=== PATIENT | female | born 1965 | race African-American/Black ===

== ENCOUNTER 2018-10-07 18:08 | Emergency (ER) | payer SELFPAY ==
[~2018-10-07] VITALS: Ht 167.6 cm; Wt 100.0 kg
[~2018-10-07 18:08] MED LIST: ATENOLOL25 MG PO; BENADRYL25 M1 OR; LISINOPRIL10 MG PO; NORVASC PO; ZOFRAN ODT8 MG PO
[2018-10-07] MEDS ORDERED: ATENOLOL50 MG PO (18:22)
[2018-10-07 18:29] LABS: HEMATOCRIT 40.3 % (37.0-47.0); IMMATURE GRANULOCYTES 0.2 % (0.0-5.0); MEAN CELL VOLUME 93.7 fL CALC (80.0-100.0); MEAN CORPUSCULAR HGB 30.2 pG CALC (26.0-32.0); MEAN CORPUSCULAR HGB CONC 32.3 g/L CALC (32.0-36.0); NEUT# 4.11 thou/uL (2.00-7.15); RED BLOOD COUNT 4.3 mill/uL (4.20-5.60); RED CELL DISTRI WIDTH 14.3 % (11.5-15.5)
[2018-10-07 18:45] LABS: ALBUMIN 4.6 g/dL (3.2-5.0); ALKALINE PHOSPHATASE 130 u/l (38-126); AMYLASE 133 u/l (30-110); ANION GAP 10 (6-22 (CALC)); BILIRUBIN, TOTAL 0.6 mg/dL (0.0-1.4); BUN 9 mg/dL (7-17); BUN/CREATININE RATIO 12 (12-20 (CALC)); CARBON DIOXIDE 30 mmol/l (22-30); CHLORIDE 107 mmol/l (95-108); CREATININE 0.7 mg/dL (0.5-1.0); GFR > 60 ML/MIN (>=60 (CALC)); GFR FOR AFR.AMER. > 60 ML/MIN (>=60 (CALC)); LIPASE 41 u/l (23-300); POTASSIUM 3.6 mmol/l (3.5-5.1); SGOT/AST 23 u/l (14-36); SODIUM 144 mmol/l (137-146); TOTAL PROTEIN 9.3 g/dL (6.3-8.2)
[2018-10-07 21:27] LABS: URINE BILIRUBIN - DIPSTICK NEGATIVE (NEGATIVE); URINE BLOOD DIPSTICK NEGATIVE (NEGATIVE); URINE COLOR YELLOW; URINE GLUCOSE - DIPSTICK NEGATIVE (NEGATIVE); URINE KETONE NEGATIVE (NEGATIVE); URINE LEUK ESTERASE NEGATIVE (NEGATIVE); URINE NITRITE - DIPSTICK NEGATIVE (Negative); URINE PH 6.5 (4.5-8.0); URINE PROTEIN - DIPSTICK TRACE mg/dL (NEG-TRACE); URINE SPECIFIC GRAVITY >=1.030; URINE UROBILINOGEN - DIPSTICK 0.2 E.U./dL (0.2)
[2018-10-07] MEDS ORDERED: PHENERGAN25 MG/TAB PO (21:37)
[2018-10-07 21:42] VITALS: BP 188/88
== END 2018-10-07 21:52 | disposition home or self-care (01) | DRG 392 ==
LOC: ED 18:08
PROVIDERS: Family Medicine
DX: K52.9 Noninfective gastroenteritis and colitis, unspecified (principal); I10 Essential (primary) hypertension

== ENCOUNTER 2019-10-06 13:27 | Inpatient (IN) | payer SELFPAY ==
[~2019-10-06] VITALS: Ht 170.2 cm; Wt 97.2 kg
[~2019-10-06 13:27] MED LIST changes: +ATENOLOL50 MG PO; +PHENERGAN25 MG/TAB PO
[2019-10-06 15:30] LABS: HEMATOCRIT 38.4 % (37.0-47.0); HEMOGLOBIN 12.6 g/dl (12.0-16.0); IMMATURE GRANULOCYTES 0.2 % (0.0-5.0); MEAN CORPUSCULAR HGB 31.5 pG CALC (26.0-32.0); MEAN CORPUSCULAR HGB CONC 32.8 g/dL CAL (32.0-36.0); NEUT# 3.65 thou/uL (2.00-7.15); RED CELL DISTRI WIDTH 13.4 % (11.5-15.5)
[2019-10-06 15:41] LABS: ALBUMIN 4.5 g/dL (3.2-5.0); ALKALINE PHOSPHATASE 127 u/l (38-126); BUN 10 mg/dL (7-17); BUN/CREATININE RATIO 10 (12-20 (CALC)); CARBON DIOXIDE 31 mmol/l (22-30); CHLORIDE 96 mmol/l (95-108); GFR 58 ML/MIN (>=60 (CALC)); GFR FOR AFR.AMER. > 60 ML/MIN (>=60 (CALC)); POTASSIUM 2.9 mmol/l (3.5-5.1); TOTAL PROTEIN 9.1 g/dL (6.3-8.2)
[2019-10-06 15:54] LABS: ANION GAP 12 (6-22 (CALC)); BILIRUBIN, TOTAL 0.9 mg/dL (0.0-1.4); SGOT/AST 45 u/l (14-36); SODIUM 136 mmol/l (137-146)
[2019-10-06 16:26] LABS: C-REACTIVE PROTEIN 8.2 mg/dL (0-0.9); MAGNESIUM 2.2 mg/dL (1.6-2.3)
[2019-10-06 18:07] VITALS: BP 109/76
[2019-10-07] VITALS (7 sets, daily range): BP systolic 87–117; BP diastolic 49–75
[2019-10-07 05:34] LABS: HEMATOCRIT 34.8 % (37.0-47.0); HEMOGLOBIN 11.3 g/dl (12.0-16.0); IMMATURE GRANULOCYTES 0.2 % (0.0-5.0); MEAN CELL VOLUME 96.1 fL CALC (80.0-100.0); MEAN CORPUSCULAR HGB 31.2 pG CALC (26.0-32.0); MEAN CORPUSCULAR HGB CONC 32.5 g/dL CAL (32.0-36.0); NEUT# 3.29 thou/uL (2.00-7.15); RED BLOOD COUNT 3.62 mill/uL (4.20-5.60); RED CELL DISTRI WIDTH 13.5 % (11.5-15.5)
[2019-10-07 05:58] LABS: ALBUMIN 3.8 g/dL (3.2-5.0); ALKALINE PHOSPHATASE 117 u/l (38-126); ANION GAP 12 (6-22 (CALC)); BILIRUBIN, TOTAL 0.9 mg/dL (0.0-1.4); BUN 11 mg/dL (7-17); BUN/CREATININE RATIO 13 (12-20 (CALC)); CARBON DIOXIDE 26 mmol/l (22-30); CHLORIDE 101 mmol/l (95-108); CREATININE 0.9 mg/dL (0.5-1.0); GFR > 60 ML/MIN (>=60 (CALC)); GFR FOR AFR.AMER. > 60 ML/MIN (>=60 (CALC)); SGOT/AST 35 u/l (14-36); SODIUM 135 mmol/l (137-146); TOTAL PROTEIN 7.4 g/dL (6.3-8.2)
[2019-10-07 06:01] LABS: POTASSIUM 3.7 mmol/l (3.5-5.1)
[2019-10-08 00:35] VITALS: BP 110/65
[2019-10-08 04:34] VITALS: BP 107/70
[2019-10-08 07:44] VITALS: BP 122/70
[2019-10-08 11:00] VITALS: BP 101/58
[2019-10-08 15:00] VITALS: BP 92/61
[2019-10-08 19:25] VITALS: BP 98/58
[2019-10-09 00:22] VITALS: BP 96/59
[2019-10-09 04:30] VITALS: BP 109/66
[2019-10-09 05:02] LABS: HEMATOCRIT 35.9 % (37.0-47.0); HEMOGLOBIN 11.6 g/dl (12.0-16.0); IMMATURE GRANULOCYTES 0.4 % (0.0-5.0); MEAN CELL VOLUME 96.2 fL CALC (80.0-100.0); MEAN CORPUSCULAR HGB 31.1 pG CALC (26.0-32.0); MEAN CORPUSCULAR HGB CONC 32.3 g/dL CAL (32.0-36.0); NEUT# 6.2 thou/uL (2.00-7.15); RED BLOOD COUNT 3.73 mill/uL (4.20-5.60); RED CELL DISTRI WIDTH 13.5 % (11.5-15.5)
[2019-10-09 05:26] LABS: ALBUMIN 3.4 g/dL (3.2-5.0); ALKALINE PHOSPHATASE 138 u/l (38-126); ANION GAP 11 (6-22 (CALC)); BILIRUBIN, TOTAL 0.8 mg/dL (0.0-1.4); BUN 15 mg/dL (7-17); BUN/CREATININE RATIO 14 (12-20 (CALC)); CARBON DIOXIDE 27 mmol/l (22-30); CHLORIDE 99 mmol/l (95-108); CREATININE 1.1 mg/dL (0.5-1.0); GFR 52 ML/MIN (>=60 (CALC)); GFR FOR AFR.AMER. > 60 ML/MIN (>=60 (CALC)); POTASSIUM 3.7 mmol/l (3.5-5.1); SGOT/AST 45 u/l (14-36); SODIUM 134 mmol/l (137-146); TOTAL PROTEIN 7.1 g/dL (6.3-8.2)
[2019-10-09 05:45] LABS: C-REACTIVE PROTEIN 17.2 mg/dL (0-0.9)
[2019-10-09 08:23] VITALS: BP 114/58
[2019-10-09 10:30] VITALS: BP 110/68
[2019-10-09 14:36] LABS: URINE BILIRUBIN - DIPSTICK SMALL (NEGATIVE); URINE BLOOD DIPSTICK MODERATE (NEGATIVE); URINE COLOR DK. YELLOW; URINE GLUCOSE - DIPSTICK NEGATIVE (NEGATIVE); URINE KETONE NEGATIVE (NEGATIVE); URINE LEUK ESTERASE NEGATIVE (NEGATIVE); URINE NITRITE - DIPSTICK NEGATIVE (Negative); URINE PROTEIN - DIPSTICK >=300 mg/dL (NEG-TRACE); URINE SPECIFIC GRAVITY 1.025; URINE UROBILINOGEN - DIPSTICK 0.2 E.U./dL (0.2)
[2019-10-09 14:53] LABS: URINE SQUAMOUS EPITHELIAL CELL FEW EPI/hpf (0-FEW)
[2019-10-09 15:00] VITALS: BP 108/69; BP 110/70
[2019-10-09 19:34] VITALS: BP 93/57
[2019-10-10] VITALS (7 sets, daily range): BP systolic 84–101; BP diastolic 50–63
[2019-10-11 02:40] VITALS: BP 100/62
[2019-10-11 05:15] LABS: HEMATOCRIT 34.1 % (37.0-47.0); IMMATURE GRANULOCYTES 0.9 % (0.0-5.0); MEAN CELL VOLUME 97.4 fL CALC (80.0-100.0); MEAN CORPUSCULAR HGB 31.4 pG CALC (26.0-32.0); MEAN CORPUSCULAR HGB CONC 32.3 g/dL CAL (32.0-36.0); NEUT# 9.53 thou/uL (2.00-7.15); RED BLOOD COUNT 3.5 mill/uL (4.20-5.60); RED CELL DISTRI WIDTH 13.5 % (11.5-15.5)
[2019-10-11 05:26] LABS: ALBUMIN 2.9 g/dL (3.2-5.0); BILIRUBIN, TOTAL 0.6 mg/dL (0.0-1.4); CREATININE 1.3 mg/dL (0.5-1.0); POTASSIUM 4.1 mmol/l (3.5-5.1); TOTAL PROTEIN 6.5 g/dL (6.3-8.2)
[2019-10-11 05:58] LABS: C-REACTIVE PROTEIN 13.7 mg/dL (0-0.9)
[2019-10-11 08:06] VITALS: BP 100/51
[2019-10-11 11:22] VITALS: BP 103/62
[2019-10-11 15:54] VITALS: BP 104/66
[2019-10-11 19:30] VITALS: BP 117/73
[2019-10-12 00:10] VITALS: BP 109/65
[2019-10-12 04:00] VITALS: BP 109/72
[2019-10-12 05:53] LABS: HEMATOCRIT 36.9 % (37.0-47.0); HEMOGLOBIN 11.6 g/dl (12.0-16.0); MEAN CELL VOLUME 99.2 fL CALC (80.0-100.0); MEAN CORPUSCULAR HGB 31.2 pG CALC (26.0-32.0); MEAN CORPUSCULAR HGB CONC 31.4 g/dL CAL (32.0-36.0); RED BLOOD COUNT 3.72 mill/uL (4.20-5.60); RED CELL DISTRI WIDTH 13.5 % (11.5-15.5)
[2019-10-12 06:22] LABS: ALBUMIN 2.9 g/dL (3.2-5.0); BILIRUBIN, TOTAL 0.5 mg/dL (0.0-1.4); CREATININE 1.2 mg/dL (0.5-1.0); POTASSIUM 4.2 mmol/l (3.5-5.1); TOTAL PROTEIN 6.4 g/dL (6.3-8.2)
[2019-10-12 08:02] VITALS: BP 96/58
[2019-10-12 11:32] VITALS: BP 123/66
[2019-10-12 15:30] VITALS: BP 109/65
[2019-10-12 18:50] VITALS: BP 116/67
[2019-10-13] VITALS: BP 119/72
[2019-10-13 04:00] VITALS: BP 143/75
[2019-10-13 05:53] LABS: HEMATOCRIT 37.2 % (37.0-47.0); HEMOGLOBIN 11.6 g/dl (12.0-16.0); IMMATURE GRANULOCYTES 0.9 % (0.0-5.0); MEAN CELL VOLUME 97.4 fL CALC (80.0-100.0); MEAN CORPUSCULAR HGB 30.4 pG CALC (26.0-32.0); MEAN CORPUSCULAR HGB CONC 31.2 g/dL CAL (32.0-36.0); NEUT# 4.02 thou/uL (2.00-7.15); RED BLOOD COUNT 3.82 mill/uL (4.20-5.60); RED CELL DISTRI WIDTH 13.3 % (11.5-15.5)
[2019-10-13 06:04] LABS: ALBUMIN 2.9 g/dL (3.2-5.0); ALKALINE PHOSPHATASE 118 u/l (38-126); ANION GAP 10 (6-22 (CALC)); BILIRUBIN, TOTAL 0.6 mg/dL (0.0-1.4); BUN 20 mg/dL (7-17); BUN/CREATININE RATIO 19 (12-20 (CALC)); C-REACTIVE PROTEIN 3.7 mg/dL (0-0.9); CARBON DIOXIDE 26 mmol/l (22-30); CHLORIDE 103 mmol/l (95-108); CREATININE 1.1 mg/dL (0.5-1.0); GFR 52 ML/MIN (>=60 (CALC)); GFR FOR AFR.AMER. > 60 ML/MIN (>=60 (CALC)); SGOT/AST 30 u/l (14-36); SODIUM 135 mmol/l (137-146); TOTAL PROTEIN 6.4 g/dL (6.3-8.2)
[2019-10-13 08:18] VITALS: BP 107/65
[2019-10-13] MEDS ORDERED: DEXAMETHASON6 MG PO (11:27)
[2019-10-13 11:32] VITALS: BP 135/77
[2019-10-13 16:50] VITALS: BP 145/74
[2019-10-13 19:25] VITALS: BP 130/78
[2019-10-14 04:06] VITALS: BP 137/83
[2019-10-14 07:45] VITALS: BP 118/75
[2019-10-14 11:11] VITALS: BP 122/77
== END 2019-10-14 14:50 | disposition home or self-care (01) | DRG 177 ==
LOC: ED 13:27 → ED-I 16:00 → ED 16:07 → ED-I 16:08 → MS2 16:08
PROVIDERS: Family Medicine; Nurse Practitioner Family; ADMIT Internal Medicine; ATTEND Internal Medicine
DX: U07.1 COVID-19 (principal); J12.89 Other viral pneumonia; J96.01 Acute respiratory failure with hypoxia; I10 Essential (primary) hypertension; E87.6 Hypokalemia
CPT/HCPCS: J1650; J3475

== ENCOUNTER 2019-12-17 00:48 | Emergency (ER) | payer SELFPAY ==
[~2019-12-17] VITALS: Ht 170.2 cm; Wt 90.0 kg
[~2019-12-17 00:48] MED LIST changes: +DEXAMETHASON6 MG PO
[2019-12-17] MEDS ORDERED: VASOTEC2.5 MG PO (01:08)
[2019-12-17 01:42] LABS: HEMOGLOBIN 10.7 g/dl (12.0-16.0); MEAN CELL VOLUME 97.3 fL CALC (80.0-100.0); MEAN CORPUSCULAR HGB 31.6 pG CALC (26.0-32.0); MEAN CORPUSCULAR HGB CONC 32.4 g/dL CAL (32.0-36.0); NEUT# 1.65 thou/uL (2.00-7.15); RED BLOOD COUNT 3.39 mill/uL (4.20-5.60); RED CELL DISTRI WIDTH 17.7 % (11.5-15.5)
[2019-12-17 02:03] LABS: ALBUMIN 4.2 g/dL (3.2-5.0); ALKALINE PHOSPHATASE 104 u/l (38-126); ANION GAP 15 (6-22 (CALC)); BILIRUBIN, TOTAL 0.7 mg/dL (0.0-1.4); BUN 6 mg/dL (7-17); BUN/CREATININE RATIO 7 (12-20 (CALC)); CARBON DIOXIDE 22 mmol/l (22-30); CHLORIDE 108 mmol/l (95-108); CPK 98 u/l (30-165); CREATININE 0.9 mg/dL (0.5-1.0); GFR > 60 ML/MIN (>=60 (CALC)); GFR FOR AFR.AMER. > 60 ML/MIN (>=60 (CALC)); MAGNESIUM 2.1 mg/dL (1.6-2.3); POTASSIUM 3.3 mmol/l (3.5-5.1); SGOT/AST 31 u/l (14-36); SODIUM 141 mmol/l (137-146); TOTAL PROTEIN 8.1 g/dL (6.3-8.2)
[2019-12-17] MEDS ORDERED: TORADOL PO (02:29)
[2019-12-17 02:46] VITALS: BP 137/76
== END 2019-12-17 02:46 | disposition home or self-care (01) | DRG 556 ==
LOC: ED 00:48
PROVIDERS: Family Medicine
DX: M79.18 Myalgia, other site (principal); I10 Essential (primary) hypertension; E66.9 Obesity, unspecified

== ENCOUNTER 2020-02-12 20:08 | Emergency (ER) | payer SELFPAY ==
[~2020-02-12] VITALS: Ht 172.7 cm; Wt 95.4 kg
[~2020-02-12 20:08] MED LIST changes: +TORADOL PO; +VASOTEC2.5 MG PO
[2020-02-12 20:16] VITALS: BP 104/64
== END 2020-02-12 21:25 | disposition home or self-care (01) | DRG 563 ==
LOC: ED 20:08
DX: S93.402A Sprain of unspecified ligament of left ankle, initial encounter (principal); I10 Essential (primary) hypertension; X50.0XXA Overexertion from strenuous movement or load, initial encounter; Y92.22 Religious institution as the place of occurrence of the external cause

== ENCOUNTER 2021-03-16 14:02 | Emergency (ER) | payer SELFPAY ==
[~2021-03-16] VITALS: Ht 172.7 cm; Wt 115.0 kg
[2021-03-16 16:35] LABS: IMMATURE GRANULOCYTES 0.1 % (0.0-5.0); MEAN CELL VOLUME 96.4 fL CALC (80.0-100.0); MEAN CORPUSCULAR HGB 31.1 pG CALC (26.0-32.0); MEAN CORPUSCULAR HGB CONC 32.3 g/dL CAL (32.0-36.0); NEUT# 3.57 thou/uL (2.00-7.15); RED BLOOD COUNT 4.18 mill/uL (4.20-5.60); RED CELL DISTRI WIDTH 13.8 % (11.5-15.5)
[2021-03-16 16:36] LABS: HEMATOCRIT 40.3 % (37.0-47.0)
[2021-03-16 16:58] LABS: ALBUMIN 4.2 g/dL (3.2-5.0); ALKALINE PHOSPHATASE 130 u/l (38-126); ANION GAP 13 (6-22 (CALC)); BILIRUBIN, TOTAL 0.9 mg/dL (0.0-1.4); BUN 10 mg/dL (7-17); BUN/CREATININE RATIO 13 (12-20 (CALC)); CARBON DIOXIDE 28 mmol/l (22-30); CHLORIDE 105 mmol/l (95-108); CREATININE 0.8 mg/dL (0.5-1.0); GFR > 60 ML/MIN (>=60 (CALC)); GFR FOR AFR.AMER. > 60 ML/MIN (>=60 (CALC)); POTASSIUM 3.9 mmol/l (3.5-5.1); SGOT/AST 28 u/l (14-36); SODIUM 142 mmol/l (137-146); TOTAL PROTEIN 8.5 g/dL (6.3-8.2)
[2021-03-16 17:19] VITALS: BP 168/91
== END 2021-03-16 17:38 | disposition home or self-care (01) | DRG 179 ==
LOC: ED 14:02
PROVIDERS: Family Medicine
DX: U07.1 COVID-19 (principal); I10 Essential (primary) hypertension

== ENCOUNTER 2021-07-11 21:37 | Emergency (ER) | payer SELFPAY ==
[~2021-07-11] VITALS: Ht 172.7 cm; Wt 97.0 kg
[2021-07-11 21:48] VITALS: BP 146/88
[2021-07-11 22:01] VITALS: BP 133/79
[2021-07-11 22:18] LABS: URINE BILIRUBIN - DIPSTICK NEGATIVE (NEGATIVE); URINE BLOOD DIPSTICK NEGATIVE (NEGATIVE); URINE COLOR YELLOW; URINE GLUCOSE - DIPSTICK NEGATIVE (NEGATIVE); URINE KETONE NEGATIVE (NEGATIVE); URINE LEUK ESTERASE NEGATIVE (NEGATIVE); URINE PROTEIN - DIPSTICK NEGATIVE (NEG-TRACE); URINE SPECIFIC GRAVITY <=1.005; URINE UROBILINOGEN - DIPSTICK 0.2 E.U./dL (0.2)
[2021-07-11 22:19] LABS: HEMATOCRIT 36.1 % (37.0-47.0); HEMOGLOBIN 12.1 g/dl (12.0-16.0); IMMATURE GRANULOCYTES 0.3 % (0.0-5.0); MEAN CORPUSCULAR HGB 31.5 pG CALC (26.0-32.0); MEAN CORPUSCULAR HGB CONC 33.5 g/dL CAL (32.0-36.0); NEUT# 2.78 thou/uL (2.00-7.15); RED BLOOD COUNT 3.84 mill/uL (4.20-5.60); RED CELL DISTRI WIDTH 14.1 % (11.5-15.5)
[2021-07-11 22:32] LABS: URINE NITRITE - DIPSTICK NEGATIVE (Negative)
[2021-07-11 22:41] LABS: ALBUMIN 4.2 g/dL (3.2-5.0); ALKALINE PHOSPHATASE 139 u/l (38-126); ANION GAP 15 (6-22 (CALC)); BUN 11 mg/dL (7-17); BUN/CREATININE RATIO 11 (12-20 (CALC)); CARBON DIOXIDE 23 mmol/l (22-30); CHLORIDE 105 mmol/l (95-108); GFR 57 ML/MIN (>=60 (CALC)); GFR FOR AFR.AMER. > 60 ML/MIN (>=60 (CALC)); POTASSIUM 3.4 mmol/l (3.5-5.1); SGOT/AST 31 u/l (14-36); SODIUM 140 mmol/l (137-146); TOTAL PROTEIN 8.1 g/dL (6.3-8.2)
[2021-07-11 22:42] LABS: BILIRUBIN, TOTAL 0.4 mg/dL (0.0-1.4)
[2021-07-11] MEDS ORDERED: CARDIZEM CD240 MG PO (23:24)
[2021-07-11] MEDS ORDERED: TRIAMCINOLON0.0252 EX (23:24)
[2021-07-11 23:33] VITALS: BP 135/81
[2021-07-12 00:54] VITALS: BP 122/79
[2021-07-12 01:27] VITALS: BP 108/71
[2021-07-12 01:46] VITALS: BP 100/68
[2021-07-12 02:00] VITALS: BP 98/62
[2021-07-12 02:15] VITALS: BP 101/67
[2021-07-12 02:30] VITALS: BP 105/70
== END 2021-07-11 23:33 | disposition home or self-care (01) | DRG 607 ==
LOC: ED 21:37
PROVIDERS: Family Medicine
DX: L28.0 Lichen simplex chronicus (principal); I10 Essential (primary) hypertension

== ENCOUNTER 2021-11-13 04:49 | Emergency (ER) | payer SELFPAY ==
[~2021-11-13] VITALS: Ht 172.7 cm; Wt 100.0 kg
[~2021-11-13 04:49] MED LIST changes: +CARDIZEM CD240 MG PO; +TRIAMCINOLON0.0252 EX
[2021-11-13 05:59] LABS: HEMATOCRIT 39.1 % (37.0-47.0); HEMOGLOBIN 13.4 g/dl (12.0-16.0); IMMATURE GRANULOCYTES 0.3 % (0.0-5.0); MEAN CELL VOLUME 93.1 fL CALC (80.0-100.0); MEAN CORPUSCULAR HGB 31.9 pG CALC (26.0-32.0); MEAN CORPUSCULAR HGB CONC 34.3 g/dL CAL (32.0-36.0); NEUT# 2.39 thou/uL (2.00-7.15); RED BLOOD COUNT 4.2 mill/uL (4.20-5.60); RED CELL DISTRI WIDTH 14.1 % (11.5-15.5)
[2021-11-13 06:07] LABS: URINE BILIRUBIN - DIPSTICK NEGATIVE (NEGATIVE); URINE BLOOD DIPSTICK NEGATIVE (NEGATIVE); URINE COLOR YELLOW; URINE GLUCOSE - DIPSTICK NEGATIVE (NEGATIVE); URINE KETONE NEGATIVE (NEGATIVE); URINE LEUK ESTERASE NEGATIVE (NEGATIVE); URINE PROTEIN - DIPSTICK NEGATIVE (NEG-TRACE); URINE UROBILINOGEN - DIPSTICK 0.2 E.U./dL (0.2)
[2021-11-13 06:13] LABS: URINE NITRITE - DIPSTICK NEGATIVE (Negative)
[2021-11-13 06:24] LABS: ALBUMIN 4.7 g/dL (3.2-5.0); ALKALINE PHOSPHATASE 138 u/l (38-126); ANION GAP 16 (6-22 (CALC)); BILIRUBIN, TOTAL 0.5 mg/dL (0.0-1.4); BUN 9 mg/dL (7-17); BUN/CREATININE RATIO 9 (12-20 (CALC)); CARBON DIOXIDE 23 mmol/l (22-30); CHLORIDE 110 mmol/l (95-108); CREATININE 1.1 mg/dL (0.5-1.0); GFR FOR AFR.AMER. > 60 ML/MIN (>=60 (CALC)); GFR OTHER RACES 51 ML/MIN (>=60 (CALC)); POTASSIUM 3.6 mmol/l (3.5-5.1); SGOT/AST 34 u/l (14-36); SODIUM 146 mmol/l (137-146); TOTAL PROTEIN 9.5 g/dL (6.3-8.2)
[2021-11-13 06:37] LABS: MYOGLOBIN 37 ng/mL (0 - 62)
[2021-11-13] MEDS ORDERED: AMLODIPINE BESYL5 MG PO (06:59)
[2021-11-13 07:02] VITALS: BP 141/102
== END 2021-11-13 07:15 | disposition home or self-care (01) | DRG 305 ==
LOC: ED 04:49
PROVIDERS: Family Medicine
DX: I10 Essential (primary) hypertension (principal)